=== PATIENT | male | born 1975 | race Caucasian/White ===

== ENCOUNTER → 2021-09-17 | Outpatient (CLI) | payer BC ==
[~2021-09-17] MED LIST: CARAFATE1 GM PO; CIPRO500 MG PO; FLAGYL500 MG PO; PHENERGAN 12.12.5 M1 PO; PROTONIX40 MG PO; WELLBUTRIN XL300 MG PO; ZOFRAN ODT 4 MG4 MG PO
[2021-09-17 11:02] LABS: HEMOGLOBIN 14.5 gm/dl (14.0-17.5); RED BLOOD COUNT 4.88 M/UL (4.20-5.50); WHITE BLOOD COUNT 5.5 K/UL (4.5-11.0)
[2021-09-17 11:11] LABS: BUN/CREATININE RATIO 13 (0-10)
== END ==
LOC: LAB 10:10
PROVIDERS: Nurse Practitioner Family
DX: I10 Essential (primary) hypertension (principal); E53.8 Deficiency of other specified B group vitamins; E55.9 Vitamin D deficiency, unspecified
CPT/HCPCS: 36415; 80053; 80061; 82607; 84443; 85025

== ENCOUNTER → 2022-04-03 | Day surgery (SDC) | payer BC ==
[~2022-04-03] MED LIST changes: +HYDROCHLOROTHIA25 MG PO
== END | disposition home or self-care (01) ==
LOC: OR 06:43
DX: K62.5 Hemorrhage of anus and rectum (principal); D12.3 Benign neoplasm of transverse colon; D17.5 Benign lipomatous neoplasm of intra-abdominal organs; K57.30 Diverticulosis of large intestine without perforation or abscess without bleeding; I86.8 Varicose veins of other specified sites; K64.8 Other hemorrhoids; K64.4 Residual hemorrhoidal skin tags; I10 Essential (primary) hypertension; E66.8 Other obesity; Z68.37 Body mass index [BMI] 37.0-37.9, adult
CPT/HCPCS: J2704; J7040